=== PATIENT | male | born 1960 | race Caucasian/White ===

== ENCOUNTER → 2023-09-10 12:49 | Outpatient (REF) | payer BC, SELFPAY ==
[2023-09-10 14:03] LABS: % Basophils 0.9 % (0-2); % Eosinophils 3.1 % (0-6); % Immature Granulocytes 0.2 % (0-0.5); % Lymphocytes 25.8 % (20.5-51.1); % Monocytes 7.4 % (1.7-9.3); % Neutrophils 62.6 % (42.2-75.2); Absolute Eosinophils 0.1 10^3/uL (0-0.7); Absolute Lymphocytes 1.2 10^3/uL (1.2-3.4); Absolute Monocytes 0.3 10^3/uL (0.1-0.6); Absolute Neutrophils 2.8 10^3/uL (1.4-6.5); Hematocrit 44.9 % (39.0-52.0); Hemoglobin 16.6 g/dL (13.0-18.0); Mean Corpuscular Hgb 33.5 pg (27.0-31.0); Mean Corpuscular Volume 90.5 fL (80.0-94.0); Mean Platelet Volume 9.4 fL (7.4-10.4); Nucleated Red Blood Cells % 0 % (-); Platelet Count 251 10^3/uL (130-400); Red Blood Cell Count 4.96 10^6/uL (4.70-6.10); Red Cell Dist. Width 12.1 % (11.5-14.5); White Blood Cell Count 4.5 10^3/uL (4.8-10.8)
[2023-09-10 14:41] LABS: Procalcitonin < 0.05 ng/ml (0.0-0.25)
[2023-09-10 14:51] LABS: Erythrocyte Sed Rate 3 mm/hour (0-20)
[2023-09-13 17:02] LABS: Lyme Antibody Screen, EIA Negative (Negative); Rheumatoid Agglutinin Less Than 10 IU (<10 IU)
[2023-09-13 23:03] LABS: EBV-EA (D) Ab IgG >150.0 U/mL (0.0-10.9); EBV-NA IgG >600.0 U/mL (0.0-21.9); EBV-VCA IgM Antibodies 21.9 U/mL (0.0-43.9)
[2023-09-14 00:05] LABS: ANA, IgG Reflex to HEp-2 None Detected (None Detected)
== END ==
LOC: REG 12:49
PROVIDERS: ATTENDING PHYSICIAN Family Medicine Sports Medicine; FAMILY PHYSICIAN Family Medicine
DX: R53.83 Other fatigue (principal)
CPT/HCPCS: 36415; 84145; 85025; 85652; 86038; 86140; 86430; 86618; 86663; 86664; 86665

== ENCOUNTER → 2023-11-08 09:56 | Outpatient (REF) | payer BC, SELFPAY | LOC: RAD 09:56 | PROVIDERS: ATTENDING PHYSICIAN Family Medicine | DX: R05.1 Acute cough (principal) | CPT/HCPCS: 71046 ==

== ENCOUNTER → 2024-12-20 11:02 | Outpatient (REF) | payer BC, SELFPAY ==
[2024-12-20 12:38] LABS: % Basophils 1.7 % (0-2); % Eosinophils 6.6 % (0-6); % Immature Granulocytes 0.3 % (0-0.5); % Lymphocytes 32.4 % (20.5-51.1); % Monocytes 8.9 % (1.7-9.3); % Neutrophils 50.1 % (42.2-75.2); Absolute Basophils 0.1 10^3/uL (0-0.2); Absolute Eosinophils 0.2 10^3/uL (0-0.7); Absolute Lymphocytes 1.1 10^3/uL (1.2-3.4); Absolute Monocytes 0.3 10^3/uL (0.1-0.6); Absolute Neutrophils 1.8 10^3/uL (1.4-6.5); Hematocrit 45.7 % (39.0-52.0); Hemoglobin 16.3 g/dL (13.0-18.0); Mean Corp Hgb Conc. 35.7 g/dL (33.0-37.0); Mean Corpuscular Hgb 33.7 pg (27.0-31.0); Mean Corpuscular Volume 94.4 fL (80.0-94.0); Mean Platelet Volume 9.6 fL (7.4-10.4); Nucleated Red Blood Cells % 0 % (-); Platelet Count 225 10^3/uL (130-400); Red Blood Cell Count 4.84 10^6/uL (4.70-6.10); Red Cell Dist. Width 11.7 % (11.5-14.5); White Blood Cell Count 3.5 10^3/uL (4.8-10.8)
[2024-12-20 12:55] LABS: ALT (SGPT) 41 U/L (0-50); AST (SGOT) 43 U/L (17-59); Albumin 4.8 g/dl (3.5-5.0); Alkaline Phosphatase 39 U/L (38-126); Blood Urea Nitrogen 11 mg/dl (9-20); Calcium 9.9 mg/dl (8.4-10.2); Carbon Dioxide 31 mmol/L (22-30); Chloride 106 mmol/L (98-107); Glucose 98 mg/dl (70-99); Potassium 4.8 mmol/L (3.5-5.1); Sodium 142 mmol/L (135-145); Total Bilirubin 0.6 mg/dl (0.2-1.3); Total Protein 7.5 g/dl (6.3-8.2); eGFR > 60.00
[2024-12-20 18:11] LABS: Free T3 3.54 pg/ml (2.77-5.27); Free T4 1.18 ng/dl (0.78-2.19); Vitamin D, 25-OH*** 73.5 ng/mL (30-80)
[2024-12-20 18:24] LABS: PSA, Total - Screen 0.49 ng/ml (0.0-4.0)
[2024-12-21 12:15] LABS: Lyme Antibody Screen, EIA Negative (Negative)
[2024-12-21 13:39] LABS: Rheumatoid Agglutinin Less Than 10 IU (<10 IU)
[2024-12-23 01:20] LABS: EBV-EA (D) Ab IgG >150.0 U/mL (0.0-10.9); EBV-NA IgG >600.0 U/mL (0.0-21.9); EBV-VCA IgM Antibodies 13.4 U/mL (0.0-43.9)
[2024-12-23 02:07] LABS: Insulin-like Growth Factor I 166 ng/mL (43-225)
[2024-12-23 02:39] LABS: DHEA Sulfate 86 ug/dL (52-295)
[2024-12-23 02:40] LABS: % Free Testosterone 1.6 % (1.6-2.9); Free Testosterone 66 pg/mL (47-244); Sex Hormone Binding Globulin 42 nmol/L (19-76); Total Testosterone 408 ng/dL (300-720)
[2024-12-23 06:26] LABS: ANA, IgG Reflex to HEp-2 None Detected (None Detected)
== END ==
LOC: REG 11:02
PROVIDERS: ATTENDING PHYSICIAN Family Medicine Sports Medicine; FAMILY PHYSICIAN Family Medicine; OTHER PHYSICIAN Family Medicine
DX: E20.1 Pseudohypoparathyroidism (principal)
CPT/HCPCS: 80053; 82306; 82627; 84270; 84305; 84402; 84403; 84439; 84443; 84481; 85025; 86038; 86430; 86618; 86663; 86664; 86665; G0103

== ENCOUNTER → 2025-01-18 07:15 | Outpatient (REF) | payer BC, SELFPAY ==
[2025-01-18 11:25] LABS: ALT (SGPT) 26 U/L (0-50); AST (SGOT) 35 U/L (17-59); Albumin 4.5 g/dl (3.5-5.0); Alkaline Phosphatase 33 U/L (38-126); Blood Urea Nitrogen 15 mg/dl (9-20); Calcium 9.8 mg/dl (8.4-10.2); Carbon Dioxide 28 mmol/L (22-30); Chloride 107 mmol/L (98-107); Glucose 103 mg/dl (70-99); HDL Cholesterol 45 mg/dl; LDL Cholesterol, Calculated 98 mg/dl; Potassium 4.8 mmol/L (3.5-5.1); Sodium 144 mmol/L (135-145); Total Bilirubin 0.7 mg/dl (0.2-1.3); Total Cholesterol 159 mg/dl (50-199); Total Protein 7.1 g/dl (6.3-8.2); Triglyceride 81 mg/dl (10-149); Very Low Density Lipoprotein 16 mg/dl (0-30); eGFR > 60.00
== END ==
LOC: HWRCS 07:15
PROVIDERS: ATTENDING PHYSICIAN Nuclear Medicine Nuclear Cardiology; FAMILY PHYSICIAN Family Medicine
DX: I48.0 Paroxysmal atrial fibrillation (principal); I44.0 Atrioventricular block, first degree; R00.2 Palpitations
CPT/HCPCS: 36415; 80053; 80061; 93306